=== PATIENT | male | born 1950 | race Two or more races ===

== ENCOUNTER 2017-06-25 16:29 | Emergency (ER) | payer MEDICARE, MEDICAID ==
[~2017-06-25] VITALS: Ht 167.6 cm; Wt 80.0 kg
[2017-06-25 16:31] VITALS: BP 130/90
== END 2017-06-25 19:08 | disposition left against medical advice (07) ==
LOC: ER 16:52
DX: Z53.21 Procedure and treatment not carried out due to patient leaving prior to being seen by health care provider (principal)

== ENCOUNTER 2017-12-11 19:12 | Emergency (ER) | payer MEDICARE, MEDICAID ==
[~2017-12-11] VITALS: Ht 170.2 cm; Wt 73.0 kg
[2017-12-11 19:57] VITALS: BP 128/91
[2017-12-11] MEDS ORDERED: LIDOCAINE HCL 1% 20ML VIAL (Pyxis) INJ INFIL ONE (20:30)
[2017-12-11] MEDS ORDERED: LIDOCAINE HCL 1% 10 MG/ML 10ML VIAL INJ NR (21:24)
[2017-12-11] MEDS ORDERED: BACITRACIN ZINC OINT UDPKT TOP ONE (22:00)
== END 2017-12-11 22:49 | disposition home or self-care (01) ==
LOC: ER 20:29
DX: S01.01XA Laceration without foreign body of scalp, initial encounter (principal); W01.0XXA Fall on same level from slipping, tripping and stumbling without subsequent striking against object, initial encounter; Y93.89 Activity, other specified; Y92.012 Bathroom of single-family (private) house as the place of occurrence of the external cause; Y99.8 Other external cause status
CPT/HCPCS: 12002; 70450; 99284; J3490

== ENCOUNTER 2017-12-21 16:23 | Emergency (ER) | payer MEDICARE, MEDICAID ==
[~2017-12-21] VITALS: Ht 162.6 cm; Wt 65.0 kg
[2017-12-21 17:08] VITALS: BP 133/79
== END 2017-12-21 17:38 | disposition home or self-care (01) ==
LOC: ER 16:23
DX: Z48.02 Encounter for removal of sutures (principal)
CPT/HCPCS: 99281

== ENCOUNTER 2020-09-27 21:48 | Emergency (ER) | payer BC, MEDICAID, MEDICARE, OTHER ==
[~2020-09-27] VITALS: Ht 170.2 cm; Wt 74.0 kg
[2020-09-27 22:10] VITALS: BP 130/100
[2020-09-27 23:25] LABS: CLARITY URINE CLEAR (CLEAR); COLOR URINE YELLOW (YELLOW); KETONES URINE NEGATIVE (NEGATIVE); LEUKOCYTE ESTERASE URINE NEGATIVE (NEGATIVE); NITRITE URINE NEGATIVE (NEGATIVE); OCCULT BLOOD URINE NEGATIVE (NEGATIVE); PROTEIN URINE NEGATIVE (NEGATIVE); SPECIFIC GRAVITY URINE 1.009 (1.005-1.030); UROBILINOGEN URINE 0.2 E.U./dL (0.2-1.0)
[2020-09-29] MEDS ORDERED: TOPUD MT (15:27)
== END 2020-09-28 00:51 | disposition home or self-care (01) ==
LOC: ER 21:48
DX: K62.89 Other specified diseases of anus and rectum (principal)
CPT/HCPCS: 81003; 99283

== ENCOUNTER 2020-09-29 14:03 | Emergency (ER) | payer BC, MEDICAID ==
[~2020-09-29] VITALS: Ht 170.2 cm; Wt 73.0 kg
[2020-09-29] MEDS ORDERED: TOPUD MT (15:27)
[2020-09-29] MEDS ORDERED: ACETAMINOPHEN 325MG TABLET PO ONE (15:30)
[2020-09-29 15:32] VITALS: BP 120/92
== END 2020-09-29 15:33 | disposition home or self-care (01) ==
LOC: ER 15:19
DX: K62.89 Other specified diseases of anus and rectum (principal)
CPT/HCPCS: 99282